=== PATIENT | female | born 1985 | race Asian ===

== ENCOUNTER 2019-12-31 18:37 | Emergency (ER) | payer OTHER, MEDICAID ==
[2019-12-31 18:47] VITALS: BP 159/103
[2019-12-31] MEDS ORDERED: predniSONE 20 MG TABLET PO STA (19:01)
--- NOTE | 2019-12-31 19:07 | ED Physician Documentation ---
PD HPI SKIN - Stated complaint Stated Complaint: RASH - Chief complaint Chief Complaint: Wound - History obtained from History obtained from: Patient - History of Present Illness Timing - onset: How many months ago (7) Timing - details: Gradual onset Pain level max: 0 Pain level now: 0 Location: Bodywide Quality / character: Itchy, Swelling Improved by: Other (hasn't taken anything) Worsened by (comment): COMMENT (nothing) Associated symptoms: No: Fever, Myalgias, Joint pain, Headache, Facial swelling, Dyspnea, Abd pain, N/V/D, Urinary sx - Additional information Additional information: 34-year-old female with a history of eczema. She states that she moved from the [facility] approximately a year ago, started having the rash again in May and it gradually worsened. Is not currently on any medications. Has not seen a pvc loader. Nothing makes it better or worse. She is not , breast- feeding or trying to become . She states that it occasionally clear fluid drains. Review of Systems Constitutional: denies: Fever, Chills GI: denies: Vomiting : denies: Now [facility] PAST MEDICAL HISTORY - Past Medical History Past Medical History: Yes Derm: Eczema - Past Surgical History Past Surgical History: No - Present Medications Home Medications: Ambulatory Orders Medication Instructions Recorded Confirmed predniSONE [Deltasone] 10 mg PO [id number] #42 tab 12/31/19 - Allergies Allergies/Adverse Reactions: Allergies Allergy/AdvReac Type Severity Reaction Status Date / Time Sulfa (Sulfonamide Allergy Hives Verified 12/31/19 18:48 Antibiotics) - Social History Does the pt smoke?: No Smoking Status: Never smoker Does the pt drink ETOH?: No Does the pt have substance abuse?: No - Immunizations Immunizations are current?: Yes PD ED PE NORMAL - Vitals Vital signs reviewed: Yes - General General: Alert and oriented X 3, No acute distress - HEENT HEENT: Moist mucous membranes - Neck Neck: Supple, no meningeal sign - Cardiac Cardiac: RRR, Strong equal pulses - Respiratory Respiratory: No respiratory distress, Clear bilaterally - Abdomen Abdomen: Soft, Non tender, Non distended - Derm Derm: Warm and dry, Other (Diffuse rash over the upper thighs, lower abdomen and upper chest. Causing darkening of the skin. No erythema.) - Extremities Extremities: No edema - Neuro Neuro: Alert and oriented X 3 - Psych Psych: Normal mood, Normal affect Results - Vitals Vitals: Vital Signs - 24 hr 12/31/19 18:43 Temperature 36.7 C Heart Rate 111 H Respiratory 18 Rate Blood Pressure 159/103 H O2 Saturation 99 Oxygen O2 Source Room air PD MEDICAL DECISION MAKING - ED course Complexity details: considered differential, d/w patient ED course: Rash is consistent with significant eczema. Will place her on oral steroids. We will have her increase her lotion utilization at home and have her follow-up with dermatology for further care. Patient counseled regarding signs and symptoms for which I believe and urgent re-evaluation would be necessary. Patient with good understanding of and agreement to plan and is comfortable going home at this time This document was made in part using voice recognition software. While efforts are made to proofread this document, sound alike and grammatical errors may occur. No signs of secondary infection. Departure - Departure Disposition: Home, Self Care Clinical Impression: Eczema Qualifiers: Eczema type: unspecified Qualified Code(s): L30.9 - Dermatitis, unspecified Condition: Good Instructions: ED Dermatitis Atopic Eczema Follow-Up: [facility] [Provider Group] - Within 1 week Prescriptions: predniSONE [Deltasone] 10 mg PO [id number] #42 tab Comments: Use the steroids as prescribed. You should also be utilizing lotion liberally. Follow-up with dermatology for further care. Return if you worsen.
== END 2019-12-31 19:12 | disposition home or self-care (01) ==
LOC: ED 18:37
DX: L30.9 Dermatitis, unspecified (principal)
CPT/HCPCS: 99282; 99284; J7512

== ENCOUNTER 2020-01-16 08:00 | Outpatient (CLI) | payer OTHER, MEDICAID ==
[2020-01-16 17:06] LABS: BASOPHILS % (AUTO) 0.7 %; EOSINOPHILS % (AUTO) 8.6 %; HGB - HEMOGLOBIN 15.2 g/dL (12.0-16.0); LYMPHOCYTES % (AUTO) 17.1 %; MEAN CORPUSCULAR HEMOGLOBIN 29.2 pg (27.0-31.0); MEAN CORPUSCULAR HGB CONC 31.9 g/dL (32.0-36.0); MEAN CORPUSCULAR VOLUME 91.5 fL (81.0-99.0); MEAN PLATELET VOLUME 10.2 fL (7.9-10.8); MONOCYTES % (AUTO) 6.7 %; PLT - PLATELET COUNT 385 10^3/uL (130-450); RED CELL DISTRIBUTION WIDTH 12.8 % (12.0-15.0)
[2020-01-16 17:08] LABS: ABNORMAL LYMPHS % (MANUAL) 0 %; BAND NEUTROPHILS % (MANUAL) 0 %
[2020-01-16 17:20] LABS: ALBUMIN 4.4 g/dL (3.2-5.5); ALBUMIN/GLOBULIN RATIO 1.3 (1.0-2.2); BILIRUBIN,TOTAL 0.7 mg/dL (0.2-1.0); CALCIUM 9.1 mg/dL (8.5-10.3); CREATININE 0.7 mg/dL (0.4-1.0); TOTAL PROTEIN 7.8 g/dL (6.7-8.2)
[2020-01-16 17:35] LABS: THYROID STIMULATING HORMONE 1.22 uIU/mL (0.34-5.60)
[2020-01-16 17:36] LABS: FREE T4 (FREE THYROXINE) 0.77 ng/dL (0.58-1.64)
[2020-01-16 17:37] LABS: FREE T3 3.79 pg/mL (2.5-3.9)
[2020-01-16 17:55] LABS: DIFFERENTIAL COMMENT MANUAL DIFFERENTIAL; EOSINOPHILS # (MANUAL) 1.2 10^3/uL (0-0.7); LYMPHOCYTES % (MANUAL) 17 %; MONOCYTES # (MANUAL) 0.8 10^3/uL (0.0-1.0); PLATELET ESTIMATE, MANUAL NORMAL (130-450,000) (NORMAL); PLATELET MORPHOLOGY NORMAL APPEARANCE (NORMAL); RBC MORPHOLOGY (MULTIPLE) NORMAL APPEARANCE (NORMAL)
== END 2020-01-16 23:59 | disposition home or self-care (01) ==
LOC: LAB.WCP 08:00
PROVIDERS: ATTEND Family Medicine
DX: L30.9 Dermatitis, unspecified (principal); R68.89 Other general symptoms and signs
CPT/HCPCS: 36415; 80053; 84439; 84443; 84481; 85025

== ENCOUNTER 2021-01-13 08:00 | Outpatient (CLI) | payer MEDICAID, OTHER ==
[2021-01-13 18:01] LABS: BASOPHILS # (AUTO) 0.1 10^3/uL (0.0-0.1); BASOPHILS % (AUTO) 1.3 %; EOSINOPHILS # (AUTO) 0.4 10^3/uL (0.0-0.7); EOSINOPHILS % (AUTO) 4.2 %; HCT - HEMATOCRIT 43.5 % (37.0-47.0); HGB - HEMOGLOBIN 13.7 g/dL (12.0-16.0); LYMPHOCYTES # (AUTO) 2.9 10^3/uL (1.5-3.5); LYMPHOCYTES % (AUTO) 31.5 %; MEAN CORPUSCULAR HEMOGLOBIN 27.1 pg (27.0-31.0); MEAN CORPUSCULAR HGB CONC 31.5 g/dL (32.0-36.0); MEAN CORPUSCULAR VOLUME 86.1 fL (81.0-99.0); MEAN PLATELET VOLUME 10.3 fL (7.9-10.8); MONOCYTES # (AUTO) 0.7 10^3/uL (0.0-1.0); MONOCYTES % (AUTO) 8.1 %; NEUTROPHILS % (AUTO) 54.4 %; PLT - PLATELET COUNT 392 10^3/uL (130-450); RED BLOOD COUNT 5.05 10^6/uL (4.20-5.40); RED CELL DISTRIBUTION WIDTH 12.7 % (12.0-15.0); WHITE BLOOD COUNT 9.1 x10^3/uL (4.8-10.8)
[2021-01-13 18:14] LABS: ALBUMIN 4.2 g/dL (3.2-5.5); ALBUMIN/GLOBULIN RATIO 1.2 (1.0-2.2); BILIRUBIN,TOTAL 0.4 mg/dL (0.2-1.0); CREATININE 0.7 mg/dL (0.4-1.0); POTASSIUM 3.6 mmol/L (3.5-5.0); TOTAL PROTEIN 7.8 g/dL (6.7-8.2)
[2021-01-13 18:30] LABS: THYROID STIMULATING HORMONE 1.39 uIU/mL (0.34-5.60)
== END 2021-01-13 23:59 | disposition home or self-care (01) ==
LOC: LAB.WCP 08:00
PROVIDERS: ATTEND Nurse Practitioner Family
DX: R03.0 Elevated blood-pressure reading, without diagnosis of hypertension (principal)
CPT/HCPCS: 36415; 80053; 84443; 85025